=== PATIENT | female | born 1945 | race Asian ===

== ENCOUNTER 2017-01-13 14:09 | Emergency (ER) | payer OTHER ==
--- NOTE | 2017-01-13 14:29 | RAD ---
CT of the head without contrast, 01/13/2017: History: Lethargy Comparison is made to a study from 09/11/2008. There is moderate cerebral atrophy. There are are moderate patchy lucencies in the deep white matter bilaterally compatible with chronic ischemic change. These findings have developed since the previous study. The ventricles are enlarged on a compensatory basis. Cerebellar atrophy as also developed. There is no shift of the midline structures. There is no evidence of acute intracranial hemorrhage or mass effect. The right eye is abnormal demonstrating increased density internally with peripheral appearing calcifications. IMPRESSION: 1. Moderate cerebral and cerebellar atrophy. 2. Moderate bilateral deep white matter lucencies compatible with chronic ischemic change. 3. The brain abnormalities have worsened considerably since 09/11/2008. 4. No acute intracranial abnormality is detected. Note: The findings were called to personnel in the [facility] ER at 2:10 PM on 01/13/2017. PQRS Compliance Statement: One or more of the following individualized dose reduction techniques were utilized for this examination: 1. Automated exposure control 2. Adjustment of the mA and/or kV according to patient size 3. Use of iterative reconstruction technique
--- NOTE | 2017-01-13 14:37 | EKG ---
[facility] [address] [place] [address] Test Date: 2017-01-13 Test Time: 14:19:37 Pat Name: MARYSOL GU Department: Room: Gender: F Process Owner: : 1945 Requested By: ODILON LASSITER Order Number: [id number] Reading MD: Selene Jaimes Measurements Intervals [place] Rate: 67 P: 63 MS: 154 QRS: -47 QRSD: 104 T: 143 QT: 432 QTc: 460 Interpretive Statements SINUS RHYTHM ABNORMAL LEFT AXIS DEVIATION LVH WITH REPOLARIZATION ABNORMALITY ALSO CONSIDER MYOCARDIAL ISCHEMIA Electronically Signed On 01-17-2017 11:02:51 CDT by Selene Jaimes
[2017-01-13 14:40] LABS: HEMATOCRIT 37.9 % (36.0-47.0); HEMOGLOBIN 12.3 g/dL (12.0-15.5); RED BLOOD COUNT 4.04 x10^6/uL (3.50-5.40); WHITE BLOOD COUNT 3.1 x10^3/uL (4.0-11.0)
[2017-01-13 14:50] LABS: PROTHROMBIN TIME PATIENT 12.8 SEC (11.7-14.0)
[2017-01-13 14:54] LABS: CREATININE 2.6 mg/dL (0.6-1.0); GFR 18.1; POTASSIUM 3.9 mmol/L (3.5-5.1)
[2017-01-13] MEDS ORDERED: CONTRAST GIVEN MC PRN (15:00)
[2017-01-13] MEDS ORDERED: IOHEXOL 350 MG/ML 100 ML VIAL. IV ONE (15:00)
[2017-01-13] MEDS ORDERED: IOHEXOL 350 MG/ML 100 ML VIAL. ONE (15:05)
[2017-01-13] MEDS ORDERED: LABETALOL 20 MG/4 ML DISP.SYRIN. IV PRN (15:15)
[2017-01-13] MEDS ORDERED: IV NORMAL SALINE 50ML 50 ML IV ONE (15:15)
[2017-01-13] MEDS ORDERED: TRANEXAMIC ACID 1,000 MG/10 ML VIAL. TOP ONE (15:15)
[2017-01-13] MEDS ORDERED: ALTEPLASE IV ONE (15:15)
[2017-01-13] MEDS ORDERED: ALTEPLASE IV SCH (15:15)
[2017-01-13 15:45] VITALS: BP 165/68
--- NOTE | 2017-01-13 16:11 | PHYS DOC ---
Past Medical History Past Medical History: Renal Failure, Unknown Past Surgical History: Other Additional Past Surgical Histo: DIALYSIS SHUNT LEFT UPPER ARM Alcohol Use: None Drug Use: None Adult General Chief Complaint Chief Complaint: ALTERED MENTAL STATUS HPI HPI Patient is a 71 year old female dialysis patient who presents with altered mental status and acute left-sided deficits while at dialysis. Patient's GCS on arrival was 9. Patient is [place] [id number]. She does not communicate verbally and has difficulty following commands. Code stroke was activated prior to ED arrival. Patient airway is intact and patient brought to the CT scanner prior to being roomed in the ED. Review of Systems Review of Systems Review of symptoms unobtainable secondary to the patient's medical condition. Current Medications Current Medications Current Medications Medications (Trade) Dose Ordered Sig/Ajith Start Time Stop Time Status Last Admin Dose Admin Alteplase, Recombinant 0 ml @ 0 mls/hr Q1H 01/13/17 15:15 01/13/17 15:16 Info (Do NOT chart on this entry -- for MONITORING) 1 each PRN DAILY PRN 01/13/17 15:00 01/15/17 14:59 Iohexol (Omnipaque 350 Mg/ml) 100 ml STK-MED ONCE 01/13/17 15:05 01/13/17 15:06 DC Labetalol HCl (Normodyne) 10 mg PRN Q10MIN PRN 01/13/17 15:15 UNV Nicardipine HCl 50 mg/Sodium Chloride 270 ml @ 27 mls/hr CONT PRN PRN 01/13/17 15:15 UNV Sodium Chloride 50 ml @ 0 mls/hr 1X ONCE 01/13/17 15:15 01/13/17 15:16 UNV Tranexamic Acid (Cyklokapron) 1,000 mg 1X ONCE 01/13/17 15:15 01/13/17 15:16 UNV Allergies Allergies Allergies Coded Allergies Type Severity Reaction Last Updated Verified No Known Drug Allergies 01/13/17 No Physical Exam Physical Exam Constitutional: Alert, nonverbal, left-sided any plegic, intact airway. [] HENT: Normocephalic, atraumatic, bilateral external ears normal, oropharynx moist, absent gag reflex no oral exudates, nose normal. [] Eyes: Pupils are normally reactive. Anisocoria[] Neck: Normal range of motion. [] Cardiovascular:Heart rate regular rhythm, no murmur [] Lungs & Thorax: Bilateral breath sounds clear to auscultation [] Abdomen: Bowel sounds normal, soft, no tenderness. [] Skin: Warm, dry. [] Back: No tenderness, no CVA tenderness. [] Extremities: No tenderness, no cyanosis, no clubbing, ROM intact, no edema. [] Neurologic: Alert, left facial droop, dense left upper left lower normal motor function, normal sensory function, right upper right lower extremity races. [] Psychologic: Affect, anxious[] Current Patient Data Vital Signs Vital Signs Date Time Temp Pulse Resp B/P (MAP) Pulse Ox O2 Delivery O2 Flow Rate FiO2 01/13/17 14:09 98.0 24 24 227/100 (142) 100 Room Air 98.0 Lab Values Laboratory Tests Test 01/13/17 14:30 White Blood Count 3.1 x10^3/uL (4.0-11.0) L Red Blood Count 4.04 x10^6/uL (3.50-5.40) Hemoglobin 12.3 g/dL (12.0-15.5) Hematocrit 37.9 % (36.0-47.0) Mean Corpuscular Volume 94 fL (79-100) Mean Corpuscular Hemoglobin 31 pg (25-35) Mean Corpuscular Hemoglobin Concent 33 g/dL (31-37) Red Cell Distribution Width 15.0 % (11.5-14.5) H Platelet Count 91 x10^3/uL (140-400) L Prothrombin Time 12.8 SEC (11.7-14.0) Prothrombin Time INR 1.0 (0.8-1.1) PTT 33 SEC (24-38) Sodium Level 140 mmol/L (136-145) Potassium Level 3.9 mmol/L (3.5-5.1) Chloride Level 102 mmol/L (98-107) Carbon Dioxide Level 30 mmol/L (21-32) Anion Gap 8 (6-14) Blood Urea Nitrogen 10 mg/dL (7-20) Creatinine 2.6 mg/dL (0.6-1.0) H Estimated GFR (Cockcroft-Gault) 18.1 Glucose Level 100 mg/dL (70-99) H Calcium Level 10.0 mg/dL (8.5-10.1) Laboratory Tests 01/13/17 14:30 Laboratory Tests 01/13/17 14:30 EKG EKG [EKG: Sinus rhythm, rate 67, QTC 460, LVH, no definite acute ST segment changes. ] Radiology/Procedures Radiology/Procedures [CT head: No acute disease per radiology report. CTA head: Ports pending prior to [facility] transfer.] Course & Med Decision Making Course & Med Decision Making Pertinent Labs and Imaging studies reviewed. (See chart for details) [Patient with acute onset of left-sided deficits with change in mental status. Patient's GCS is 9. Airway currently intact, no pooling of secretions. Patient' s initial stroke score is 26. CT head nonacute. Patient's blood pressure improved without treatment. Patient with persistent left-sided deficits with left-sided facial droop, change of mental status and expressive aphasia. While in the emergency department, the patient did experience improvement of symptoms regained her ability to communicate along with some use of of her left arm and leg. Case reviewed with Dr. Ba after CT report. Recommendations are given the patient's NIH stroke score is to transfer to either [facility] her [facility]. Case reviewed with Dr. Solo on-call for neurology at [facility]. Given the patient's medical complexity, relatively low platelet count and poor plate being functioning and high presenting stroke score, he feels as though the patient is too high risk of a bleeding complication to warrant IV thrombolytics. I agree with these concerns and further concern about bleeding from the patient's left arm AV fistula which was just accessed her to ED arrival. The patient is accepted emergently to [facility] on [facility] where she will undergo perfusion imaging studies for evaluation of acute intra-arterial intervention per neuro interventionalist.] Family updated patient's status. Critical care time: 45 mins. Dragon Disclaimer Dragon Disclaimer This electronic medical record was generated, in whole or in part, using a voice recognition dictation system. Departure Departure Impression: Primary Impression: CVA (cerebral vascular accident) Disposition: 02 TRANSFER [facility] Condition: GUARDED Referrals: ALONA SULLIVAN MD (PCP) ODILON LASSITER DO Jan 13, 2017 16:11
--- NOTE | 2017-01-13 16:12 | RAD ---
Indication change in mental status. CVA. CTA targeted to the major vessels off the arch of the aorta, carotid arteries and the vertebral system to the intracranial vasculature was performed. Approximately 75 cc of Omnipaque 300 was administered intravenously. MIP images were generated and reviewed. Volume rendered images were also generated and reviewed. Note is made of a noncontrast CT head examination, and the result, approximately 1 hour prior to this study. There is a right pleural effusion. The thyroid is inhomogeneous and there is a calcified nodule associated with the right lobe of the thyroid. These findings are likely incidental but further evaluation of the thyroid could be performed with ultrasound if clinically warranted. Chronic changes are noted associated with the right globe. There is slight mucosal thickening seen associated with the left maxillary sinus with an associated polyp or retention cyst. A definite significant soft tissue finding in the neck is not seen. The origin of the innominate artery, left common carotid and left subclavian arteries off the arch is unremarkable. Some plaquing at the origin of the left subclavian is noted. The innominate artery bifurcates unremarkably into the right common carotid and right subclavian. Those portions of both subclavian arteries which are seen appear unremarkable. The right common carotid demonstrates moderate tortuosity. There is plaquing seen associated with the common carotid. Moderately heavy plaquing is seen at the bifurcation with mild stenosis, estimated at less than 50%. The internal carotid similarly is tortuous. No significant stenosis is seen. The horizontal segment is unremarkable. There is diffuse narrowing, probably atherosclerotic basis associated with the cavernous segment. There is heavy plaquing involving the supraclinoid segment. The left common carotid is mildly tortuous. There is plaquing at the bifurcation similar to the contralateral side but stenosis is estimated at the left carotid bifurcation at less than 50%. The internal carotid is tortuous. The cavernous and horizontal segments are unremarkable. There is moderately heavy plaquing involving the supraclinoid segment with some associated stenosis. The vertebral arteries originate unremarkably off their respective subclavian arteries. The vertebral arteries unite unremarkably to form the basilar artery. A1 and M1 segments bilaterally are seen and appear unremarkable. The left A1 segment is slightly hypoplastic. Anterior cerebral arteries are seen. No significant vascular anomaly is seen in the posterior fossa. Intracranially no additional or significant vascular anomaly is seen. IMPRESSION: No definite acute vascular event is seen. There is calcific plaquing at both carotid bifurcations but stenosis bilaterally is estimated at less than 50%. There is narrowing of the cavernous portion of the right internal carotid and some supraclinoid plaquing and narrowing bilaterally. Right pleural effusion. Inhomogeneous thyroid. Note: Stenosis calculations for CT, MR and conventional angiography are based upon determination of the distal ICA diameter in accordance with the NASCET methodology. Stenosis calculations for doppler studies are derived from validated velocity criteria which are known to correlate with NASCET methodology of determining stenosis.
== END 2017-01-13 15:58 | disposition short-term general hospital (02) ==
LOC: ER 14:09
DX: I63.9 Cerebral infarction, unspecified (principal); N18.9 Chronic kidney disease, unspecified; Z99.2 Dependence on renal dialysis
CPT/HCPCS: 36415; 70450; 70496; 70498; 80048; 82962; 85027; 85610; 85730; 93005; 99291; Q9967